=== PATIENT | male | born 1970 | race Caucasian/White ===

== ENCOUNTER 2019-10-14 21:43 | Outpatient (REF) | payer BC, SELFPAY ==
[2019-10-14 22:10] LABS: ALT 110 U/L (16-63); AST 45 U/L (15-37); Albumin 4.3 g/dL (3.4-5.0); Alkaline Phosphatase 63 U/L (46-116); Anion Gap 12.6 mmol/L (3-11); BUN 20 mg/dL (7-18); Bilirubin, Total 0.5 mg/dL (0.2-1.0); CO2 27.4 mmol/L (21.0-32.0); CREATININE 0.89 mg/dL (0.70-1.30); Calcium 9.2 mg/dL (8.5-10.1); Calculated LDL 113 mg/dL; Chloride 100 mmol/L (98-107); Cholesterol 207 mg/dL (<200); Glucose 101 mg/dL (74-106); HDL Cholesterol 40 mg/dL (40-60); Potassium 3.8 mmol/L (3.5-5.1); Sodium 140 mmol/L (136-145); Total Protein 7.8 g/dL (6.4-8.2); Triglyceride 270 mg/dL (<150)
[2019-10-18 12:45] LABS: PSA, Screening 0.8 ng/mL (0.0-3.5)
== END 2019-10-14 22:03 ==
LOC: NCHCN 21:43
PROVIDERS: PCP Family Medicine; Visit Provider Family Medicine
DX: E78.5 Hyperlipidemia, unspecified (principal); E66.01 Morbid (severe) obesity due to excess calories; Z12.5 Encounter for screening for malignant neoplasm of prostate
CPT/HCPCS: 80053; 80061; 84153

== ENCOUNTER 2020-05-03 10:12 | Outpatient (REF) | payer BC, SELFPAY ==
[2020-05-03 21:36] LABS: ALT 77 U/L (16-63); AST 40 U/L (15-37)
== END 2020-05-03 10:32 ==
LOC: NCHCN 10:12
PROVIDERS: PCP Family Medicine; Visit Provider Family Medicine
DX: K76.0 Fatty (change of) liver, not elsewhere classified (principal)
CPT/HCPCS: 84450; 84460

== ENCOUNTER 2021-02-06 17:33 | Outpatient (REF) | payer BC, SELFPAY ==
[2021-02-06 22:10] LABS: COMMENT (LAB VIEW ONLY) 271.56 mg/dL; Microalb ug/mg Crea 7.1 ug/mg Cr
== END 2021-02-06 17:34 | disposition home or self-care (01) ==
LOC: NCHCN 17:33
PROVIDERS: PCP Family Medicine; Visit Provider Family Medicine
DX: E11.9 Type 2 diabetes mellitus without complications (principal)
CPT/HCPCS: 82043; 82570

== ENCOUNTER 2022-02-05 19:55 | Outpatient (REF) | payer BC, SELFPAY ==
[2022-02-05 21:47] LABS: Platelet Count 243 10^3/uL (130-400)
[2022-02-05 22:31] LABS: Albumin 4.2 g/dL (3.4-5.0); Alkaline Phosphatase 60 U/L (46-116); Anion Gap 8.4 mmol/L (3-11); BUN 17 mg/dL (7-18); Bilirubin, Total 0.5 mg/dL (0.2-1.0); CO2 27.6 mmol/L (21.0-32.0); CREATININE 1.1 mg/dL (0.70-1.30); Calcium 8.8 mg/dL (8.5-10.1); Calculated LDL 117 mg/dL (<100); Chloride 102 mmol/L (98-107); Cholesterol 190 mg/dL (<200); Glucose 123 mg/dL (74-106); HDL Cholesterol 48 mg/dL (40-60); Potassium 3.7 mmol/L (3.5-5.1); Sodium 138 mmol/L (136-145); Total Protein 7.7 g/dL (6.4-8.2); Triglyceride 129 mg/dL (<150)
[2022-02-05 22:43] LABS: ALT 61 U/L (16-63); AST 26 U/L (15-37)
== END 2022-02-05 19:56 | disposition home or self-care (01) ==
LOC: NCHCN 19:55
PROVIDERS: PCP Family Medicine; Visit Provider Family Medicine
DX: Z00.00 Encounter for general adult medical examination without abnormal findings (principal); E11.9 Type 2 diabetes mellitus without complications; K76.0 Fatty (change of) liver, not elsewhere classified; E66.9 Obesity, unspecified
CPT/HCPCS: 80053; 80061; 85049

== ENCOUNTER 2022-05-06 16:35 | Outpatient (REF) | payer BC, SELFPAY ==
[2022-05-06 20:51] LABS: COMMENT (LAB VIEW ONLY) 245.86 mg/dL; Microalb ug/mg Crea 20.3 ug/mg Cr
== END 2022-05-06 16:36 | disposition home or self-care (01) ==
LOC: NCHCN 16:35
PROVIDERS: PCP Family Medicine; Visit Provider Family Medicine
DX: E11.9 Type 2 diabetes mellitus without complications (principal)
CPT/HCPCS: 82043; 82570

== ENCOUNTER 2023-05-23 15:14 | Outpatient (REF) | payer BC, SELFPAY ==
[2023-05-23 15:13] LABS: Anion Gap 10.6 mmol/L (3-11); BUN 14 mg/dL (7-18); CO2 27.4 mmol/L (21.0-32.0); CREATININE 1.1 mg/dL (0.70-1.30); Calcium 9.8 mg/dL (8.5-10.1); Calculated LDL 91 mg/dL (<100); Chloride 96 mmol/L (98-107); Cholesterol 176 mg/dL (<200); Estimated GFR 79.77 (mL/min/1.73m2); Glucose 278 mg/dL (74-106); HDL Cholesterol 56 mg/dL (40-60); Potassium 4.2 mmol/L (3.5-5.1); Sodium 134 mmol/L (136-145); Triglyceride 145 mg/dL (<150)
[2023-05-23 15:14] LABS: COMMENT (LAB VIEW ONLY) 116.61 mg/dL
[2023-05-26 10:19] LABS: PSA, Screening 0.9 ng/mL (<=3.5)
== END 2023-05-23 15:15 | disposition home or self-care (01) ==
LOC: NCHCN 15:14
PROVIDERS: PCP Family Medicine; Visit Provider Family Medicine
DX: Z00.00 Encounter for general adult medical examination without abnormal findings (principal); I10 Essential (primary) hypertension; E78.5 Hyperlipidemia, unspecified; E11.8 Type 2 diabetes mellitus with unspecified complications; K30 Functional dyspepsia; Z12.5 Encounter for screening for malignant neoplasm of prostate
CPT/HCPCS: 80048; 80061; 84153; 82043; 82570; 83874

== ENCOUNTER 2024-06-07 21:26 | Outpatient (REF) | payer BC, SELFPAY ==
[2024-06-07 21:59] LABS: COMMENT (LAB VIEW ONLY) 211.31 mg/dL; Microalb ug/mg Crea 9.9 ug/mg Cr
== END 2024-06-07 21:27 | disposition home or self-care (01) ==
LOC: NCHCN 21:26
PROVIDERS: PCP Family Medicine; Visit Provider Family Medicine
DX: E11.9 Type 2 diabetes mellitus without complications (principal)
CPT/HCPCS: 82043; 82570